=== PATIENT | female | born 1990 | race Caucasian/White ===

== ENCOUNTER 2017-07-25 10:59 | Inpatient (IN) | payer MEDICAID ==
[2017-07-25 12:30] LABS: ADD MAN DIFF? NO
[2017-07-25] MEDS ORDERED: BUTORPHANOL 2 MG INJ IV (12:30)
[2017-07-25] MEDS ORDERED: IBUPROFEN 600 MG TAB PO (12:30)
[2017-07-25] MEDS ORDERED: METHYLERGONOVINE 0.2 MG INJ IM ×2 (12:30→16:00)
[2017-07-25] MEDS ORDERED: CARBOPROST 250 MCG INJ IM ×2 (12:30→16:00)
[2017-07-25] MEDS ORDERED: OXYTOCIN 30 UNITS/LR 500 ML IV ×4 (12:30→16:00)
[2017-07-25] MEDS ORDERED: LIDOCAINE 1% (MPF) 30 ML INJ INJ (12:30)
[2017-07-25] MEDS ORDERED: MISOPROSTOL 200 MCG TAB PR ×2 (12:30→16:00)
[2017-07-25] MEDS ORDERED: HYDROCODONE/APAP (5/325) TAB PO ×2 (12:30→16:00)
[2017-07-25] MEDS: LACTATED RINGER'S 1,000 ML IV (12:41)
[2017-07-25 12:54] LABS: BASOPHILS % 0.2 % (0.0-2.0); EOSINOPHILS # 0.1 10^3/ul (0.0-0.5); EOSINOPHILS % 0.6 % (0.0-7.0); HEMOGLOBIN 13.1 g/dl (12.0-16.0); LYMPHOCYTES # 1.3 10^3/ul (0.8-2.9); LYMPHOCYTES % 12.8 % (15.0-51.0); MEAN CORPUSCULAR HEMOGLOBIN 32.8 pg (29.0-33.0); MEAN CORPUSCULAR HGB CONC 35.4 g/dl (32.0-37.0); MEAN CORPUSCULAR VOLUME 92.7 fl (82.0-101.0); MEAN PLATELET VOLUME 11.3 fl (7.4-10.4); MONOCYTE # 0.5 10^3/ul (0.3-0.9); MONOCYTES % 5.1 % (0.0-11.0); NEUTROPHIL # 8.2 10^3/ul (1.6-7.5); NEUTROPHILS % 80.8 % (39.0-77.0); PLATELET COUNT 147 10^3/UL (140-415); RED BLOOD COUNT 3.99 10^6/ul (4.20-5.40); RED CELL DISTRIBUTION WIDTH 13.7 % (11.5-14.5)
[2017-07-25 12:54] LABS: WHITE BLOOD COUNT 10.1 10^3/ul (4.8-10.8)
[2017-07-25 13:09] LABS: INR 0.93; PARTIAL THROMBOPLASTIN TIME 27.9 Sec (25.0-35.0); PROTIME 12.5 Sec (11.9-14.9)
[2017-07-25 13:22] LABS: HEPATITIS B SURFACE ANTIGEN NEGATIVE (NEGATIVE)
[2017-07-25] MEDS: OXYTOCIN 30 UNITS/LR 500 ML IV ×2 (13:45→18:01)
[2017-07-25] MEDS ORDERED: FENTAnyl 2MCG/ML-ROPIV 0.2% 100 ML (15:31)
[2017-07-25] MEDS ORDERED: BENZOCAINE 20% 56 ML SPRAY TOP (16:00)
[2017-07-25] MEDS ORDERED: WITCH HAZEL/GLYCERIN PAD PR (16:00)
[2017-07-25] MEDS ORDERED: DIBUCAINE 1% 30 GM OINT PR (16:00)
[2017-07-25] MEDS: IBUPROFEN 600 MG TAB PO (18:42)
[2017-07-25 19:05] LABS: RAPID PLASMA REAGIN NONREACTIVE (NR)
[2017-07-25] MEDS: SENNA/DOCUSATE NA (8.6MG/50MG) TAB PO (21:41)
[2017-07-26] MEDS: IBUPROFEN 600 MG TAB PO ×4 (00:09→17:52)
[2017-07-26] MEDS: LANOLIN 7 GM TUBE TOP (00:10)
[2017-07-26] MEDS: SENNA/DOCUSATE NA (8.6MG/50MG) TAB PO ×2 (08:50→21:46)
[2017-07-26 09:06] LABS: ADD MAN DIFF? NO
[2017-07-26 09:10] LABS: BASOPHILS % 0.2 % (0.0-2.0); EOSINOPHILS # 0.1 10^3/ul (0.0-0.5); EOSINOPHILS % 1.2 % (0.0-7.0); HEMATOCRIT 36.2 % (37.0-47.0); HEMOGLOBIN 12.8 g/dl (12.0-16.0); LYMPHOCYTES # 1.9 10^3/ul (0.8-2.9); LYMPHOCYTES % 17.1 % (15.0-51.0); MEAN CORPUSCULAR HEMOGLOBIN 33.2 pg (29.0-33.0); MEAN CORPUSCULAR HGB CONC 35.4 g/dl (32.0-37.0); MEAN CORPUSCULAR VOLUME 93.8 fl (82.0-101.0); MEAN PLATELET VOLUME 11.6 fl (7.4-10.4); MONOCYTE # 0.7 10^3/ul (0.3-0.9); MONOCYTES % 6.5 % (0.0-11.0); NEUTROPHIL # 8.2 10^3/ul (1.6-7.5); NEUTROPHILS % 74.5 % (39.0-77.0); PLATELET COUNT 139 10^3/UL (140-415); RED BLOOD COUNT 3.86 10^6/ul (4.20-5.40); RED CELL DISTRIBUTION WIDTH 13.8 % (11.5-14.5)
[2017-07-26] MEDS: INFLUENZA VIRUS VACCINE 0.5 ML SYG IM* (16:11)
[2017-07-27] MEDS: IBUPROFEN 600 MG TAB PO ×3 (00:01→11:57)
[2017-07-27] MEDS: SENNA/DOCUSATE NA (8.6MG/50MG) TAB PO (09:28)
== END 2017-07-27 13:30 | disposition home or self-care (01) | DRG 775 ==
LOC: OBT 10:59 → L-D 11:00 → OBT 11:55 → L-D 11:50 → PP1 18:04
PROVIDERS: Obstetrics & Gynecology
PROC: 10E0XZZ Delivery of Products of Conception, External Approach (ICD-10-PCS; principal; 2017-07-25)
DX: O80 Encounter for full-term uncomplicated delivery (principal); Z3A.38 38 weeks gestation of pregnancy; Z37.0 Single live birth
CPT/HCPCS: 85025; 85610; 85730; 86592; 86900; 86901; 87340; 90686